=== PATIENT | female | born 1960 | race Caucasian/White ===

== ENCOUNTER → 2018-01-25 | Outpatient (CLI) | payer MEDICARE, BC, OTHER ==
[~2018-01-25] MED LIST: AMIT25; AMIT50 PO; ASPI81EC PO; AZIT250 PO; BACTRIM; CARI350 PO; CODGUAEL PO; ESOM20; FURO20 PO; HYDACE5 PO; IBUP600 PO; Imitrex100 MG PO; LISHYD2025 PO; LISI20 PO; LISI5 PO; METO25ER; METO50ER PO; Mobic15 MG PO; NAPR500 PO; ONDA4 PO; OXYACE5T PO; PEPTO BISMOL; POTCHL20ER PO; PRED20 PO; RXCODGUASY PO; SULTRIDS PO; SUMA25; Sudogest60 MG PO; TOPI50 PO; TRAM50 PO; TUMS; [UNRECOGNIZED DRUG - CODE]
[2018-01-25 13:10] LABS: BASOPHILS ABSOLUTE AUTO 0.02 K/mm3 (0.00-0.23); BASOPHILS PERCENT AUTO 0 % (0-2); EOSINOPHILS ABSOLUTE AUTO 0.05 K/mm3 (0.00-0.68); EOSINOPHILS PERCENT AUTO 1 % (0-6); Hematocrit 39.5 % (33.0-51.0); Hemoglobin 13.2 g/dL (11.5-16.0); IMMATURE GRAN ABSOLUTE AUTO 0.02 K/mm3 (0.00-0.10); IMMATURE GRAN PERCENT AUTO 0 % (0-1); LYMPHOCYTES PERCENT AUTO 36 % (21-46); MONOCYTES ABSOLUTE AUTO 0.26 K/mm3 (0.16-1.47); MONOCYTES PERCENT AUTO 5 % (4-13); Mean Corpuscular HGB 30.6 pg (26.0-34.0); Mean Corpuscular HGB Conc 33.4 g/dL (31.5-36.5); Mean Corpuscular Volume 92 fL (80-100); NEUTROPHILS PERCENT AUTO 58 % (41-73); Platelet Count 277 K/mm3 (150-400); RDW Coefficient Variation 12.9 % (11.7-14.2); RDW Standard Deviation 43.9 fL (35.1-46.3); Red Blood Cell Count 4.31 M/mm3 (3.80-5.20); White Blood Cell Count 5.35 K/mm3 (4.00-11.30)
[2018-01-25 13:23] LABS: Albumin, Blood 3.6 g/dL (3.4-5.0); Albumin/Globulin Ratio 0.9 (0.8-1.8); Bilirubin, Total 0.3 mg/dL (0.1-1.0); Bun/Creatinine Ratio 15.3 (12.0-20.0); Calcium, Blood 8.7 mg/dL (8.5-10.1); Creatinine, Blood 1.11 mg/dL (0.40-1.00); Globulin, Blood 3.8 g/dL (2.2-4.0); Total Protein, Blood 7.4 g/dL (6.4-8.2)
== END | disposition home or self-care (01) ==
LOC: LAB 12:58 → LAB SHORT 12:58
PROVIDERS: Physician Assistant
DX: N39.0 Urinary tract infection, site not specified (principal); R10.9 Unspecified abdominal pain
CPT/HCPCS: 80053; 85025; 87086

== ENCOUNTER → 2018-01-30 | Outpatient (CLI) | payer MEDICARE, BC, OTHER | END | disposition home or self-care (01) | LOC: LAB SHORT 15:14 → LAB 15:14 | DX: R19.7 Diarrhea, unspecified (principal) | CPT/HCPCS: 87086 ==

== ENCOUNTER → 2018-09-26 | Outpatient (CLI) | payer MEDICARE, BC, OTHER ==
[~2018-09-26] MED LIST changes: +Pepcid20 MG PO
== END | disposition home or self-care (01) ==
LOC: LAB 16:47 → LAB SHORT 16:47
DX: R30.0 Dysuria (principal)
CPT/HCPCS: 87077; 87086; 87186

== ENCOUNTER 2018-10-01 01:39 | Emergency (ER) | payer MEDICARE, BC, OTHER ==
[~2018-10-01] VITALS: Ht 170.2 cm; Wt 90.7 kg
[~2018-10-01 01:39] MED LIST changes: -Pepcid20 MG PO
[2018-10-01 02:15] LABS: BASOPHILS ABSOLUTE AUTO 0.03 K/mm3 (0.00-0.23); BASOPHILS PERCENT AUTO 0 % (0-2); EOSINOPHILS ABSOLUTE AUTO 0.05 K/mm3 (0.00-0.68); EOSINOPHILS PERCENT AUTO 1 % (0-6); Hemoglobin 13.4 g/dL (11.5-16.0); IMMATURE GRAN ABSOLUTE AUTO 0.04 K/mm3 (0.00-0.10); IMMATURE GRAN PERCENT AUTO 0 % (0-1); LYMPHOCYTES ABSOLUTE AUTO 2.68 K/mm3 (0.84-5.20); LYMPHOCYTES PERCENT AUTO 28 % (21-46); MONOCYTES ABSOLUTE AUTO 0.38 K/mm3 (0.16-1.47); MONOCYTES PERCENT AUTO 4 % (4-13); Mean Corpuscular HGB 30.8 pg (26.0-34.0); Mean Corpuscular HGB Conc 33.5 g/dL (31.5-36.5); Mean Corpuscular Volume 92 fL (80-100); NEUTROPHILS ABSOLUTE AUTO 6.31 K/mm3 (1.96-9.15); NEUTROPHILS PERCENT AUTO 67 % (41-73); Platelet Count 201 K/mm3 (150-400); RDW Coefficient Variation 12.7 % (11.7-14.2); RDW Standard Deviation 42.3 fL (35.1-46.3); Red Blood Cell Count 4.35 M/mm3 (3.80-5.20); White Blood Cell Count 9.49 K/mm3 (4.00-11.30)
[2018-10-01 02:31] LABS: Alanine Aminotransfer (ALT/SGP 50 U/L (12-78); Albumin, Blood 3.5 g/dL (3.4-5.0); Albumin/Globulin Ratio 0.9 (0.8-1.8); Alk Phos 77 U/L (50-136); Anion Gap 9 mmol/L (6-16); Aspartate Aminotrans (AST/SGOT 72 U/L (12-37); Bilirubin, Total 0.6 mg/dL (0.1-1.0); Blood Urea Nitrogen 23 mg/dL (8-24); Bun/Creatinine Ratio 23.1 (12.0-20.0); CO2, Blood 25 mmol/L (21-32); Chloride, Blood 107 mmol/L (98-108); Globulin, Blood 3.7 g/dL (2.2-4.0); Glomerular Filtration Rate >60 (60-); Glucose, Blood 117 mg/dL (70-99); Potassium, Blood 3.8 mmol/L (3.5-5.5); Sodium, Blood 141 mmol/L (136-145); Total Protein, Blood 7.2 g/dL (6.4-8.2)
[2018-10-01] MEDS ORDERED: Pepcid20 MG PO (03:43)
== END 2018-10-01 04:00 | disposition home or self-care (01) ==
LOC: ER 01:39
PROVIDERS: Emergency Medicine
DX: K21.9 Gastro-esophageal reflux disease without esophagitis (principal); I10 Essential (primary) hypertension; Z88.0 Allergy status to penicillin; Z88.1 Allergy status to other antibiotic agents; Z79.899 Other long term (current) drug therapy
CPT/HCPCS: 80053; 83690; 85025; 93005; 93010; 96361; 96374; 96375; 99284-25; J2550; J7030

== ENCOUNTER → 2018-10-27 | Outpatient (CLI) | payer MEDICARE, BC, OTHER ==
[~2018-10-27] MED LIST changes: +Pepcid20 MG PO
== END | disposition home or self-care (01) ==
LOC: LAB 14:15 → LAB SHORT 14:15
DX: L08.9 Local infection of the skin and subcutaneous tissue, unspecified (principal)
CPT/HCPCS: 87070; 87205

== ENCOUNTER → 2019-02-05 | Outpatient (CLI) | payer MEDICARE, BC, OTHER | END | disposition home or self-care (01) | LOC: LAB SHORT 12:00 → LAB 12:00 | DX: R04.0 Epistaxis (principal) | CPT/HCPCS: 87070; 87205 ==

== ENCOUNTER → 2019-07-11 | Outpatient (CLI) | payer MEDICARE, BC, OTHER | END | disposition home or self-care (01) | LOC: LAB 12:23 → LAB SHORT 12:23 | DX: R19.09 Other intra-abdominal and pelvic swelling, mass and lump (principal) | CPT/HCPCS: 86304 ==

== ENCOUNTER → 2020-06-04 | Outpatient (CLI) | payer MEDICARE, BC, OTHER ==
[2020-06-04 15:39] LABS: BASOPHILS ABSOLUTE AUTO 0.03 K/mm3 (0.00-0.23); BASOPHILS PERCENT AUTO 1 % (0-2); EOSINOPHILS ABSOLUTE AUTO 0.05 K/mm3 (0.00-0.68); EOSINOPHILS PERCENT AUTO 1 % (0-6); Hematocrit 41.9 % (33.0-51.0); Hemoglobin 13.6 g/dL (11.5-16.0); IMMATURE GRAN ABSOLUTE AUTO 0.01 K/mm3 (0.00-0.10); IMMATURE GRAN PERCENT AUTO 0 % (0-1); LYMPHOCYTES ABSOLUTE AUTO 2.13 K/mm3 (0.84-5.20); LYMPHOCYTES PERCENT AUTO 39 % (21-46); MONOCYTES PERCENT AUTO 6 % (4-13); Mean Corpuscular HGB 30.4 pg (26.0-34.0); Mean Corpuscular HGB Conc 32.5 g/dL (31.5-36.5); Mean Corpuscular Volume 94 fL (80-100); Mean Platelet Volume 9.6 fL (9.1-12.4); NEUTROPHILS ABSOLUTE AUTO 2.94 K/mm3 (1.96-9.15); NEUTROPHILS PERCENT AUTO 54 % (41-73); Platelet Count 238 K/mm3 (150-400); RDW Coefficient Variation 12.4 % (11.7-14.2); RDW Standard Deviation 42.7 fL (35.1-46.3); Red Blood Cell Count 4.47 M/mm3 (3.80-5.20); White Blood Cell Count 5.46 K/mm3 (4.00-11.30)
[2020-06-04 16:08] LABS: Alanine Aminotransfer (ALT/SGP 26 U/L (12-78); Albumin, Blood 3.6 g/dL (3.4-5.0); Alk Phos 90 U/L (50-136); Anion Gap 5 mmol/L (6-16); Aspartate Aminotrans (AST/SGOT 12 U/L (12-37); Bilirubin, Total 0.5 mg/dL (0.1-1.0); Blood Urea Nitrogen 22 mg/dL (8-24); Bun/Creatinine Ratio 27.7 (12.0-20.0); CO2, Blood 28 mmol/L (21-32); Calcium, Blood 9.1 mg/dL (8.5-10.1); Chloride, Blood 112 mmol/L (98-108); Creatinine, Blood 0.79 mg/dL (0.40-1.00); Globulin, Blood 3.7 g/dL (2.2-4.0); Glomerular Filtration Rate >60 (60-); Glucose, Blood 98 mg/dL (70-99); Potassium, Blood 3.9 mmol/L (3.5-5.5); Sodium, Blood 145 mmol/L (136-145); Total Protein, Blood 7.3 g/dL (6.4-8.2)
== END | disposition home or self-care (01) ==
LOC: LAB 15:18 → LAB SHORT 15:18
PROVIDERS: Nurse Practitioner Family
DX: N23 Unspecified renal colic (principal); R30.0 Dysuria
CPT/HCPCS: 80053; 85025

== ENCOUNTER → 2021-06-18 | Outpatient (CLI) | payer MEDICARE, OTHER | END | disposition home or self-care (01) | LOC: LAB 16:41 → LAB SHORT 16:41 | DX: R30.9 Painful micturition, unspecified (principal) | CPT/HCPCS: 87077; 87086; 87186 ==

== ENCOUNTER → 2021-08-01 | Outpatient (CLI) | payer MEDICARE, OTHER ==
[2021-08-01 18:30] LABS: Alanine Aminotransfer (ALT/SGP 51 U/L (12-78); Albumin, Blood 3.5 g/dL (3.4-5.0); Albumin/Globulin Ratio 0.9 (0.8-1.8); Alk Phos 84 U/L (50-136); Anion Gap 2 mmol/L (6-16); Aspartate Aminotrans (AST/SGOT 18 U/L (12-37); Bilirubin, Total 0.5 mg/dL (0.1-1.0); Blood Urea Nitrogen 29 mg/dL (8-24); CHOL/HDL RATIO 2.6; CO2, Blood 29 mmol/L (21-32); Chloride, Blood 108 mmol/L (98-108); Cholesterol 202 mg/dL (50-200); Globulin, Blood 4.1 g/dL (2.2-4.0); Glucose, Blood 94 mg/dL (70-99); HDL Cholesterol 77 mg/dL (>39); LDL/HDL RATIO 1.5; Low Density Lipoprotein Chol 115 mg/dL (0-110); Potassium, Blood 4.4 mmol/L (3.5-5.5); Sodium, Blood 139 mmol/L (136-145); Total Protein, Blood 7.6 g/dL (6.4-8.2); Triglycerides 48 mg/dL (30-160); Very Low Density Lipoprot Chol 9 mg/dL (6-32)
[2021-08-01 18:34] LABS: Bun/Creatinine Ratio 34.2 (12.0-20.0); Creatinine, Blood 0.85 mg/dL (0.40-1.00); Glomerular Filtration Rate >60 (60-)
== END | disposition home or self-care (01) ==
LOC: LAB SHORT 16:09
PROVIDERS: Nurse Practitioner Family
DX: I10 Essential (primary) hypertension (principal); E66.9 Obesity, unspecified
CPT/HCPCS: 80053; 80061; 84443

== ENCOUNTER → 2022-07-21 | Outpatient (CLI) | payer MEDICARE, BC, OTHER ==
[2022-07-21 18:27] LABS: Albumin, Blood 3.6 g/dL (3.4-5.0); Albumin/Globulin Ratio 0.9 (0.8-1.8); Alk Phos 84 U/L (50-136); Anion Gap 3 mmol/L (6-16); Aspartate Aminotrans (AST/SGOT 29 U/L (12-37); Bilirubin, Total 0.6 mg/dL (0.1-1.0); Blood Urea Nitrogen 22 mg/dL (8-24); CHOL/HDL RATIO 3.2; CO2, Blood 30 mmol/L (21-32); Chloride, Blood 104 mmol/L (98-108); Cholesterol 225 mg/dL (50-200); Globulin, Blood 3.9 g/dL (2.2-4.0); Glucose, Blood 105 mg/dL (70-99); HDL Cholesterol 71 mg/dL (>39); LDL/HDL RATIO 1.8; Low Density Lipoprotein Chol 131 mg/dL (0-110); Potassium, Blood 3.8 mmol/L (3.5-5.5); Sodium, Blood 137 mmol/L (136-145); Total Protein, Blood 7.5 g/dL (6.4-8.2); Triglycerides 114 mg/dL (30-160); Very Low Density Lipoprot Chol 22 mg/dL (6-32)
[2022-07-21 18:47] LABS: Alanine Aminotransfer (ALT/SGP 62 U/L (12-78); Bun/Creatinine Ratio 30.3 (12.0-20.0); Creatinine, Blood 0.73 mg/dL (0.40-1.00); Glomerular Filtration Rate 93 (60-); Thyroid Stimulating Hormone 0.475 uIU/mL (0.360-4.800)
== END | disposition home or self-care (01) ==
LOC: LAB SHORT 16:44 → LAB 16:44
PROVIDERS: Nurse Practitioner Family
DX: G47.00 Insomnia, unspecified (principal); I10 Essential (primary) hypertension; N30.01 Acute cystitis with hematuria; N32.81 Overactive bladder
CPT/HCPCS: 80053; 80061; 84443; 87077; 87086; 87186

== ENCOUNTER → 2022-11-06 | Outpatient (CLI) | payer MEDICARE, BC, OTHER | LOC: LAB 11:25 → LAB SHORT 11:25 | DX: R11.0 Nausea (principal) | CPT/HCPCS: 87086 ==

== ENCOUNTER → 2022-12-10 | Outpatient (CLI) | payer MEDICARE, BC, OTHER ==
[~2022-12-10] MED LIST changes: +CYCL10 PO; +PROM25 PO; +ZEBUTAL 50-3251 EAC1 PO; +ZOLP5 PO
== END | disposition home or self-care (01) ==
LOC: PLD 07:46 → LAB SHORT 07:46
DX: B35.1 Tinea unguium (principal); L60.2 Onychogryphosis
CPT/HCPCS: 88304; 88312

== ENCOUNTER 2023-03-22 11:01 | Emergency (ER) | payer MEDICARE, BC, OTHER ==
[~2023-03-22] VITALS: Ht 154.9 cm; Wt 95.2 kg
[2023-03-22 11:43] LABS: Source, Urine Clean Catch
[2023-03-22 11:47] LABS: Bilirubin, Urine Neg (Neg); Blood, Urine 2+ (Neg); Glucose Qualitative, Urine Neg (Neg); Ketones, Urine Neg (Neg); Leukocyte Esterase, Urine Neg (Neg); Nitrite, Urine Neg (Neg); Protein, Urine Neg (Neg); Specific Gravity, Urine 1.015 (1.003-1.022); Urobilinogen, Urine NORM (Normal)
[2023-03-22 11:52] LABS: Appearance, Urine Clear (Clear); Color, Urine Yellow (P-Yellow)
[2023-03-22 11:54] LABS: Bacteria Rare /hpf; Squamous Epithelial Cells Rare /hpf (Few); White Blood Cells, Urine 0-2 /hpf (0-5)
[2023-03-22 13:01] LABS: BASOPHILS ABSOLUTE AUTO 0.03 K/mm3 (0.00-0.23); BASOPHILS PERCENT AUTO 1 % (0-2); EOSINOPHILS ABSOLUTE AUTO 0.03 K/mm3 (0.00-0.68); EOSINOPHILS PERCENT AUTO 1 % (0-6); Hematocrit 40.1 % (33.0-51.0); Hemoglobin 13.7 g/dL (11.5-16.0); IMMATURE GRAN ABSOLUTE AUTO 0.02 K/mm3 (0.00-0.10); IMMATURE GRAN PERCENT AUTO 0 % (0-1); LYMPHOCYTES ABSOLUTE AUTO 1.28 K/mm3 (0.84-5.20); LYMPHOCYTES PERCENT AUTO 22 % (21-46); MONOCYTES ABSOLUTE AUTO 0.17 K/mm3 (0.16-1.47); MONOCYTES PERCENT AUTO 3 % (4-13); Mean Corpuscular HGB 30.4 pg (26.0-34.0); Mean Corpuscular HGB Conc 34.2 g/dL (31.5-36.5); Mean Corpuscular Volume 89 fL (80-100); Mean Platelet Volume 9.6 fL (9.1-12.4); NEUTROPHILS ABSOLUTE AUTO 4.35 K/mm3 (1.96-9.15); NEUTROPHILS PERCENT AUTO 74 % (41-73); Platelet Count 252 K/mm3 (150-400); RDW Coefficient Variation 12.7 % (11.7-14.2); RDW Standard Deviation 41.7 fL (35.1-46.3); White Blood Cell Count 5.88 K/mm3 (4.00-11.30)
[2023-03-22 13:26] LABS: Albumin, Blood 3.4 g/dL (3.4-5.0); Bilirubin, Total 0.6 mg/dL (0.1-1.0); Bun/Creatinine Ratio 24.7 (12.0-20.0); Calcium, Blood 8.6 mg/dL (8.5-10.1); Creatinine, Blood 0.81 mg/dL (0.40-1.00); Globulin, Blood 3.5 g/dL (2.2-4.0); Potassium, Blood 3.8 mmol/L (3.5-5.5); Total Protein, Blood 6.9 g/dL (6.4-8.2)
[2023-03-22 14:29] VITALS: BP 140/81
== END 2023-03-22 15:45 | disposition home or self-care (01) ==
LOC: ER 11:01
PROVIDERS: Physician Assistant; Student in an Organized Health Care Education/Training Program
DX: G43.909 Migraine, unspecified, not intractable, without status migrainosus (principal); R30.0 Dysuria; Z88.0 Allergy status to penicillin; Z88.1 Allergy status to other antibiotic agents; Z79.1 Long term (current) use of non-steroidal anti-inflammatories (NSAID); Z79.899 Other long term (current) drug therapy; I10 Essential (primary) hypertension
CPT/HCPCS: 80053; 81001; 85025; 96361; 96365; 96375; 99283-25; J0780; J1100; J1200; J1885; J3475; J7030

== ENCOUNTER → 2023-04-22 | Outpatient (CLI) | payer MEDICARE, BC, OTHER ==
[2023-04-22 17:55] LABS: BASOPHILS ABSOLUTE AUTO 0.03 K/mm3 (0.00-0.23); BASOPHILS PERCENT AUTO 1 % (0-2); EOSINOPHILS ABSOLUTE AUTO 0.08 K/mm3 (0.00-0.68); EOSINOPHILS PERCENT AUTO 1 % (0-6); Hematocrit 43.5 % (33.0-51.0); Hemoglobin 14.3 g/dL (11.5-16.0); IMMATURE GRAN ABSOLUTE AUTO 0.01 K/mm3 (0.00-0.10); IMMATURE GRAN PERCENT AUTO 0 % (0-1); LYMPHOCYTES ABSOLUTE AUTO 1.76 K/mm3 (0.84-5.20); LYMPHOCYTES PERCENT AUTO 30 % (21-46); MONOCYTES PERCENT AUTO 5 % (4-13); Mean Corpuscular HGB 30.1 pg (26.0-34.0); Mean Corpuscular HGB Conc 32.9 g/dL (31.5-36.5); Mean Corpuscular Volume 92 fL (80-100); Mean Platelet Volume 10.1 fL (9.1-12.4); NEUTROPHILS ABSOLUTE AUTO 3.69 K/mm3 (1.96-9.15); NEUTROPHILS PERCENT AUTO 63 % (41-73); Platelet Count 278 K/mm3 (150-400); RDW Coefficient Variation 13.5 % (11.7-14.2); RDW Standard Deviation 45.5 fL (35.1-46.3); Red Blood Cell Count 4.75 M/mm3 (3.80-5.20); White Blood Cell Count 5.87 K/mm3 (4.00-11.30)
[2023-04-22 18:20] LABS: Alanine Aminotransfer (ALT/SGP 48 U/L (12-78); Albumin, Blood 3.8 g/dL (3.4-5.0); Alk Phos 102 U/L (50-136); Anion Gap 2 mmol/L (6-16); Aspartate Aminotrans (AST/SGOT 19 U/L (12-37); Bilirubin, Total 0.6 mg/dL (0.1-1.0); Blood Urea Nitrogen 20 mg/dL (8-24); CO2, Blood 30 mmol/L (21-32); Calcium, Blood 9.3 mg/dL (8.5-10.1); Chloride, Blood 106 mmol/L (98-108); Cholesterol 223 mg/dL (50-200); Globulin, Blood 3.8 g/dL (2.2-4.0); HDL Cholesterol 75 mg/dL (>39); LDL/HDL RATIO 1.5; Low Density Lipoprotein Chol 116 mg/dL (0-110); Potassium, Blood 4.1 mmol/L (3.5-5.5); Sodium, Blood 138 mmol/L (136-145); Total Protein, Blood 7.6 g/dL (6.4-8.2); Triglycerides 161 mg/dL (30-160); Very Low Density Lipoprot Chol 32 mg/dL (6-32)
[2023-04-22 18:29] LABS: Bun/Creatinine Ratio 23.1 (12.0-20.0); Creatinine, Blood 0.87 mg/dL (0.40-1.00); Glomerular Filtration Rate 75 (60-); Glucose, Blood 109 mg/dL (70-99)
== END | disposition home or self-care (01) ==
LOC: LAB 16:22 → LAB SHORT 16:22
PROVIDERS: Nurse Practitioner Family
DX: E55.9 Vitamin D deficiency, unspecified (principal); I10 Essential (primary) hypertension; N39.0 Urinary tract infection, site not specified; Z79.899 Other long term (current) drug therapy
CPT/HCPCS: 80053; 80061; 82306; 84443; 85025; 87086

== ENCOUNTER → 2023-05-04 | Outpatient (CLI) | payer MEDICARE, BC, OTHER | LOC: LAB 14:00 → LAB SHORT 14:00 | DX: R30.0 Dysuria (principal) | CPT/HCPCS: 87077; 87086; 87186 ==

== ENCOUNTER 2023-06-15 10:06 | Emergency (ER) | payer MEDICARE, BC, OTHER ==
[~2023-06-15] VITALS: Ht 154.9 cm; Wt 95.2 kg
[2023-06-15 11:06] LABS: BASOPHILS ABSOLUTE AUTO 0.03 K/mm3 (0.00-0.23); BASOPHILS PERCENT AUTO 0 % (0-2); EOSINOPHILS ABSOLUTE AUTO 0.02 K/mm3 (0.00-0.68); EOSINOPHILS PERCENT AUTO 0 % (0-6); Hematocrit 42.6 % (33.0-51.0); Hemoglobin 14.6 g/dL (11.5-16.0); IMMATURE GRAN ABSOLUTE AUTO 0.03 K/mm3 (0.00-0.10); IMMATURE GRAN PERCENT AUTO 0 % (0-1); LYMPHOCYTES ABSOLUTE AUTO 1.71 K/mm3 (0.84-5.20); LYMPHOCYTES PERCENT AUTO 24 % (21-46); MONOCYTES ABSOLUTE AUTO 0.11 K/mm3 (0.16-1.47); MONOCYTES PERCENT AUTO 2 % (4-13); Mean Corpuscular HGB 30.5 pg (26.0-34.0); Mean Corpuscular HGB Conc 34.3 g/dL (31.5-36.5); Mean Corpuscular Volume 89 fL (80-100); Mean Platelet Volume 9.4 fL (9.1-12.4); NEUTROPHILS ABSOLUTE AUTO 5.26 K/mm3 (1.96-9.15); NEUTROPHILS PERCENT AUTO 74 % (41-73); Platelet Count 273 K/mm3 (150-400); RDW Coefficient Variation 12.8 % (11.7-14.2); RDW Standard Deviation 42.1 fL (35.1-46.3); Red Blood Cell Count 4.78 M/mm3 (3.80-5.20); White Blood Cell Count 7.16 K/mm3 (4.00-11.30)
[2023-06-15 11:36] LABS: Albumin, Blood 3.5 g/dL (3.4-5.0); Albumin/Globulin Ratio 0.9 (0.8-1.8); Bilirubin, Total 0.5 mg/dL (0.1-1.0); Bun/Creatinine Ratio 23.5 (12.0-20.0); Calcium, Blood 9.6 mg/dL (8.5-10.1); Creatinine, Blood 0.72 mg/dL (0.40-1.00); Globulin, Blood 4.1 g/dL (2.2-4.0); Total Protein, Blood 7.6 g/dL (6.4-8.2)
[2023-06-15 13:34] VITALS: BP 144/84
[2023-06-15 14:59] LABS: Source, Urine Voided
[2023-06-15 15:22] LABS: Appearance, Urine Clear (Clear); Bilirubin, Urine Neg (Neg); Blood, Urine 1+ (Neg); Color, Urine Yellow (P-Yellow); Glucose Qualitative, Urine Neg (Neg); Ketones, Urine Neg (Neg); Leukocyte Esterase, Urine Neg (Neg); Nitrite, Urine Neg (Neg); Protein, Urine Neg (Neg); Urobilinogen, Urine NORM (Normal)
[2023-06-15 16:37] LABS: Bacteria Few /hpf; Squamous Epithelial Cells Few /hpf (Few); White Blood Cells, Urine 0-2 /hpf (0-5)
[2023-06-15] MEDS ORDERED: IBUP600 PO (16:47)
[2023-06-15] MEDS ORDERED: ONDA4ODT MM (16:47)
== END 2023-06-15 17:06 | disposition home or self-care (01) ==
LOC: ER 10:06
PROVIDERS: Emergency Medicine; Physician Assistant
DX: R10.9 Unspecified abdominal pain (principal); R51.9 Headache, unspecified; R11.2 Nausea with vomiting, unspecified; Z88.0 Allergy status to penicillin; Z88.1 Allergy status to other antibiotic agents; Z79.899 Other long term (current) drug therapy; I10 Essential (primary) hypertension
CPT/HCPCS: 74177; 80053; 81001; 83690; 85025; 93005; 93010; 96374-59; 96375; 99284-25; J1790; J2270; J2405; Q9967

== ENCOUNTER → 2023-08-06 | Outpatient (CLI) | payer MEDICARE, BC, OTHER ==
[~2023-08-06] MED LIST changes: +ONDA4ODT MM
[2023-08-06 18:16] LABS: BASOPHILS ABSOLUTE AUTO 0.02 K/mm3 (0.00-0.23); BASOPHILS PERCENT AUTO 0 % (0-2); EOSINOPHILS ABSOLUTE AUTO 0.05 K/mm3 (0.00-0.68); EOSINOPHILS PERCENT AUTO 1 % (0-6); Hemoglobin 14.5 g/dL (11.5-16.0); IMMATURE GRAN PERCENT AUTO 0 % (0-1); LYMPHOCYTES ABSOLUTE AUTO 1.17 K/mm3 (0.84-5.20); LYMPHOCYTES PERCENT AUTO 23 % (21-46); MONOCYTES ABSOLUTE AUTO 0.24 K/mm3 (0.16-1.47); MONOCYTES PERCENT AUTO 5 % (4-13); Mean Corpuscular HGB 29.8 pg (26.0-34.0); Mean Corpuscular Volume 90 fL (80-100); Mean Platelet Volume 10.4 fL (9.1-12.4); NEUTROPHILS ABSOLUTE AUTO 3.65 K/mm3 (1.96-9.15); NEUTROPHILS PERCENT AUTO 71 % (41-73); Platelet Count 281 K/mm3 (150-400); RDW Coefficient Variation 12.7 % (11.7-14.2); RDW Standard Deviation 41.9 fL (35.1-46.3); Red Blood Cell Count 4.87 M/mm3 (3.80-5.20); White Blood Cell Count 5.13 K/mm3 (4.00-11.30)
[2023-08-06 19:54] LABS: Albumin, Blood 3.9 g/dL (3.4-5.0); Albumin/Globulin Ratio 0.9 (0.8-1.8); Bilirubin, Total 0.8 mg/dL (0.1-1.0); Bun/Creatinine Ratio 20.9 (12.0-20.0); Calcium, Blood 9.2 mg/dL (8.5-10.1); Creatinine, Blood 0.81 mg/dL (0.40-1.00); Globulin, Blood 4.2 g/dL (2.2-4.0); Magnesium, Blood 2.3 mg/dL (1.6-2.4); Potassium, Blood 4.1 mmol/L (3.5-5.5); Thyroid Stimulating Hormone 0.127 uIU/mL (0.360-4.800); Total Protein, Blood 8.1 g/dL (6.4-8.2)
== END | disposition home or self-care (01) ==
LOC: LAB 16:33 → LAB SHORT 16:33
PROVIDERS: Nurse Practitioner Family
DX: M17.9 Osteoarthritis of knee, unspecified (principal); R30.0 Dysuria; I10 Essential (primary) hypertension
CPT/HCPCS: 80053; 83735; 84443; 85025; 87086

== ENCOUNTER 2023-08-20 06:01 | Emergency (ER) | payer MEDICARE, BC, OTHER ==
[~2023-08-20] VITALS: Ht 157.5 cm; Wt 93.4 kg
[2023-08-20 06:36] LABS: BASOPHILS ABSOLUTE AUTO 0.02 K/mm3 (0.00-0.23); BASOPHILS PERCENT AUTO 0 % (0-2); EOSINOPHILS ABSOLUTE AUTO 0.02 K/mm3 (0.00-0.68); EOSINOPHILS PERCENT AUTO 0 % (0-6); Hematocrit 39.8 % (33.0-51.0); Hemoglobin 13.7 g/dL (11.5-16.0); IMMATURE GRAN ABSOLUTE AUTO 0.02 K/mm3 (0.00-0.10); IMMATURE GRAN PERCENT AUTO 0 % (0-1); LYMPHOCYTES ABSOLUTE AUTO 1.36 K/mm3 (0.84-5.20); LYMPHOCYTES PERCENT AUTO 17 % (21-46); MONOCYTES ABSOLUTE AUTO 0.27 K/mm3 (0.16-1.47); MONOCYTES PERCENT AUTO 3 % (4-13); Mean Corpuscular HGB Conc 34.4 g/dL (31.5-36.5); Mean Corpuscular Volume 87 fL (80-100); Mean Platelet Volume 10.3 fL (9.1-12.4); NEUTROPHILS ABSOLUTE AUTO 6.35 K/mm3 (1.96-9.15); NEUTROPHILS PERCENT AUTO 79 % (41-73); Platelet Count 238 K/mm3 (150-400); RDW Standard Deviation 41.1 fL (35.1-46.3); Red Blood Cell Count 4.57 M/mm3 (3.80-5.20); White Blood Cell Count 8.04 K/mm3 (4.00-11.30)
[2023-08-20 06:45] LABS: Albumin, Blood 3.5 g/dL (3.4-5.0); Albumin/Globulin Ratio 0.9 (0.8-1.8); Bilirubin, Total 0.9 mg/dL (0.1-1.0); Bun/Creatinine Ratio 19.4 (12.0-20.0); Calcium, Blood 9.8 mg/dL (8.5-10.1); Creatinine, Blood 0.77 mg/dL (0.40-1.00); Globulin, Blood 3.9 g/dL (2.2-4.0); Total Protein, Blood 7.4 g/dL (6.4-8.2)
[2023-08-20 07:38] LABS: Source, Urine Clean Catch
[2023-08-20 07:40] LABS: Appearance, Urine Clear (Clear); Bilirubin, Urine Neg (Neg); Blood, Urine 4+ (Neg); Color, Urine Yellow (P-Yellow); Glucose Qualitative, Urine Neg (Neg); Ketones, Urine Neg (Neg); Leukocyte Esterase, Urine Neg (Neg); Nitrite, Urine Neg (Neg); Protein, Urine Neg (Neg); Urobilinogen, Urine NORM (Normal)
[2023-08-20 07:55] LABS: Bacteria Few /hpf; Squamous Epithelial Cells Rare /hpf (Few); White Blood Cells, Urine 0-2 /hpf (0-5)
[2023-08-20] MEDS ORDERED: Roxicodone5 MG PO (08:45)
[2023-08-20] MEDS ORDERED: ONDA4ODT MM (08:45)
[2023-08-20] MEDS ORDERED: Flomax0.4 MG PO (08:45)
[2023-08-20 09:00] VITALS: BP 121/75
== END 2023-08-20 09:41 | disposition home or self-care (01) ==
LOC: ER 06:01
PROVIDERS: Emergency Medicine
DX: N13.2 Hydronephrosis with renal and ureteral calculous obstruction (principal); Q63.1 Lobulated, fused and horseshoe kidney; I10 Essential (primary) hypertension; Z87.440 Personal history of urinary (tract) infections; Z79.899 Other long term (current) drug therapy; Z88.0 Allergy status to penicillin; Z88.1 Allergy status to other antibiotic agents
CPT/HCPCS: 74177; 80053; 81001; 83690; 85025; 87086; 96374-59; 96375; 99285-25; J2270; J2405; Q9967

== ENCOUNTER → 2023-09-08 | Outpatient (CLI) | payer MEDICARE, BC, OTHER ==
[~2023-09-08] MED LIST changes: +Flomax0.4 MG PO; +Roxicodone5 MG PO
[2023-09-08 18:42] LABS: CHOL/HDL RATIO 2.7; Cholesterol 194 mg/dL (50-200); HDL Cholesterol 72 mg/dL (>39); LDL/HDL RATIO 1.4; Low Density Lipoprotein Chol 103 mg/dL (0-110); Triglycerides 93 mg/dL (30-160); Very Low Density Lipoprot Chol 18 mg/dL (6-32)
[2023-09-14 08:09] LABS: ETHYL GLUCURONIDE, URN, QUANT <100 ng/mL; ETHYL SULFATE, URN, QUANT <100 ng/mL
== END | disposition home or self-care (01) ==
LOC: LAB 16:19 → LAB SHORT 16:19
PROVIDERS: Family Medicine
DX: E78.5 Hyperlipidemia, unspecified (principal); R89.9 Unspecified abnormal finding in specimens from other organs, systems and tissues; Z79.891 Long term (current) use of opiate analgesic
CPT/HCPCS: 80061; 84443; G0480

== ENCOUNTER 2023-12-12 18:12 | Emergency (ER) | payer MEDICARE, BC, OTHER ==
[~2023-12-12] VITALS: Ht 157.5 cm; Wt 95.2 kg
[2023-12-12] MEDS ORDERED: SUMAtriptan Succinate 6 MG/0.5 ML Vial SC ONE (19:25)
[2023-12-12 20:05] VITALS: BP 152/76
[2023-12-12] MEDS ORDERED: SUMA25 PO (20:13)
== END 2023-12-12 20:10 | disposition home or self-care (01) ==
LOC: ER 18:12
DX: G43.909 Migraine, unspecified, not intractable, without status migrainosus (principal); Z88.0 Allergy status to penicillin; Z88.1 Allergy status to other antibiotic agents; Z79.899 Other long term (current) drug therapy; I10 Essential (primary) hypertension
CPT/HCPCS: 96372; 99284-25; J3030

== ENCOUNTER → 2024-03-29 | Outpatient (CLI) | payer MEDICARE, BC, OTHER ==
[~2024-03-29] MED LIST changes: +SUMA25 PO
[2024-03-29 17:25] LABS: Source, Urine Voided
[2024-03-29 19:05] LABS: Bacteria Few /hpf; Red Blood Cells, Urine 0-2 /hpf (0-2); Squamous Epithelial Cells Few /hpf (Few)
== END ==
LOC: LAB SHORT 17:22 → LAB 17:22
PROVIDERS: Family Medicine
DX: R30.0 Dysuria (principal)
CPT/HCPCS: 81015; 87086

== ENCOUNTER 2024-08-22 10:04 | Day surgery (SDC) | payer MEDICARE, BC ==
[~2024-08-22] VITALS: Ht 154.9 cm; Wt 85.1 kg
[~2024-08-22 10:04] MED LIST changes: +Lidocaine 1%-Epineph 1:100000 20 ML MDV ONE; +NS 500 ML IV ONE
[2024-08-22] MEDS ORDERED: NS 500 ML IV ONE (10:39)
[2024-08-22] MEDS ORDERED: FentaNYL Citrate 50 MCG/ML 2 ML Injection ONE (10:56)
[2024-08-22] MEDS ORDERED: Midazolam HCl 1MG / ML 2ML Vial ONE (10:56)
[2024-08-22] MEDS ORDERED: propofoL 20 ML IV ONE (10:56)
[2024-08-22] MEDS ORDERED: Ondansetron HCl 2 MG / ML 2ML Vial ONE (11:00)
[2024-08-22] MEDS ORDERED: Dexamethasone Sod Phos 10 MG/ML 1ML VIAL ONE (11:00)
[2024-08-22 11:42] VITALS: BP 114/69
== END 2024-08-22 11:49 | disposition home or self-care (01) ==
LOC: ORSCSDS 10:04
PROVIDERS: Orthopaedic Surgery
PROC: 0LB70ZZ Excision of Right Hand Tendon, Open Approach (ICD-10-PCS; principal; 2024-08-22 12:00)
PROC: 0LB50ZZ Excision of Right Lower Arm and Wrist Tendon, Open Approach (ICD-10-PCS; principal; 2024-08-22 12:00)
DX: M67.441 Ganglion, right hand (principal); R22.31 Localized swelling, mass and lump, right upper limb; I10 Essential (primary) hypertension; Z79.899 Other long term (current) drug therapy
CPT/HCPCS: 88304; J1100; J2250; J2405; J2704; J3010; J7040

== ENCOUNTER 2024-08-26 16:46 | Emergency (ER) | payer MEDICARE, BC, OTHER ==
[~2024-08-26] VITALS: Ht 154.9 cm; Wt 83.9 kg
[~2024-08-26 16:46] MED LIST changes: -Lidocaine 1%-Epineph 1:100000 20 ML MDV ONE; -NS 500 ML IV ONE
[2024-08-26] MEDS ORDERED: Morphine Sulfate 4 MG/1 ML Injection IV ONE (17:15)
[2024-08-26] MEDS ORDERED: Ondansetron HCl 2 MG / ML 2ML Vial IV ONE (17:15)
[2024-08-26] MEDS ORDERED: NS 1,000 ML IV SCH (17:15)
[2024-08-26 18:00] LABS: BASOPHILS ABSOLUTE AUTO 0.04 K/mm3 (0.00-0.23); BASOPHILS PERCENT AUTO 0 % (0-2); EOSINOPHILS ABSOLUTE AUTO 0.05 K/mm3 (0.00-0.68); EOSINOPHILS PERCENT AUTO 1 % (0-6); Hematocrit 41.2 % (33.0-51.0); Hemoglobin 13.8 g/dL (11.5-16.0); IMMATURE GRAN ABSOLUTE AUTO 0.03 K/mm3 (0.00-0.10); IMMATURE GRAN PERCENT AUTO 0 % (0-1); LYMPHOCYTES ABSOLUTE AUTO 1.53 K/mm3 (0.84-5.20); LYMPHOCYTES PERCENT AUTO 17 % (21-46); MONOCYTES ABSOLUTE AUTO 0.47 K/mm3 (0.16-1.47); MONOCYTES PERCENT AUTO 5 % (4-13); Mean Corpuscular HGB 30.7 pg (26.0-34.0); Mean Corpuscular HGB Conc 33.5 g/dL (31.5-36.5); Mean Corpuscular Volume 92 fL (80-100); Mean Platelet Volume 9.4 fL (9.1-12.4); NEUTROPHILS ABSOLUTE AUTO 6.95 K/mm3 (1.96-9.15); NEUTROPHILS PERCENT AUTO 77 % (41-73); Platelet Count 279 K/mm3 (150-400); RDW Standard Deviation 43.7 fL (35.1-46.3); Red Blood Cell Count 4.49 M/mm3 (3.80-5.20); White Blood Cell Count 9.07 K/mm3 (4.00-11.30)
[2024-08-26 18:20] LABS: Albumin, Blood 3.4 g/dL (3.4-5.0); Albumin/Globulin Ratio 0.9 (0.8-1.8); Bilirubin, Total 0.8 mg/dL (0.1-1.0); Bun/Creatinine Ratio 22.8 (12.0-20.0); Calcium, Blood 9.2 mg/dL (8.5-10.1); Creatinine, Blood 0.88 mg/dL (0.40-1.00); Globulin, Blood 3.6 g/dL (2.2-4.0); Magnesium, Blood 2.6 mg/dL (1.6-2.4); Potassium, Blood 3.7 mmol/L (3.5-5.5)
[2024-08-26 18:30] LABS: Source, Urine Clean Catch
[2024-08-26 18:35] LABS: Bilirubin, Urine Neg (Neg); Blood, Urine 2+ (Neg); Color, Urine Yellow (P-Yellow); Glucose Qualitative, Urine Neg (Neg); Ketones, Urine 1+ (Neg); Leukocyte Esterase, Urine 2+ (Neg); Nitrite, Urine Neg (Neg); Protein, Urine 1+ (Neg); Urobilinogen, Urine 1+ (Normal)
[2024-08-26 18:50] LABS: Appearance, Urine Hazy (Clear)
[2024-08-26 18:51] LABS: Bacteria Mod /hpf; Mucus Light (0-Heavy); Squamous Epithelial Cells Mod /hpf (Few)
[2024-08-26 18:52] LABS: Transitional Epithelial Cells Mod /hpf (0-Rare)
[2024-08-26] MEDS ORDERED: Nitrofurantoin/Nitrofuran Mac 100 MG Cap PO ONE (19:00)
[2024-08-26 19:30] VITALS: BP 121/78
[2024-08-26] MEDS ORDERED: ONDA4 PO (19:31)
[2024-08-26] MEDS ORDERED: ACET500 PO (19:31)
[2024-08-26] MEDS ORDERED: NITR100CA PO (19:31)
[2024-08-26] MEDS ORDERED: MIRALAX17 GM PO (19:31)
== END 2024-08-26 19:47 | disposition home or self-care (01) ==
LOC: ER 16:46
PROVIDERS: Emergency Medicine
DX: R11.2 Nausea with vomiting, unspecified (principal); R10.9 Unspecified abdominal pain; I10 Essential (primary) hypertension; Z79.899 Other long term (current) drug therapy; Z88.0 Allergy status to penicillin; Z88.1 Allergy status to other antibiotic agents
CPT/HCPCS: 74177; 80053; 81001; 83690; 83735; 85025; 93005; 93010; 96360-59; 99284-25; A9270; J7030; Q9967

== ENCOUNTER → 2024-09-26 | Outpatient (CLI) | payer MEDICARE, BC, OTHER ==
[~2024-09-26] MED LIST changes: +ACET500 PO; +MIRALAX17 GM PO; +NITR100CA PO
== END | disposition home or self-care (01) ==
LOC: LAB 09:20 → LAB SHORT 09:20
DX: N39.0 Urinary tract infection, site not specified (principal)
CPT/HCPCS: 87086

== ENCOUNTER → 2024-12-01 | Outpatient (CLI) | payer MEDICARE, BC, OTHER | LOC: LAB SHORT 16:02 → LAB 16:02 | DX: N39.0 Urinary tract infection, site not specified (principal) | CPT/HCPCS: 87086 ==

== ENCOUNTER 2025-02-11 03:19 | Emergency (ER) | payer MEDICARE, BC, OTHER ==
[~2025-02-11] VITALS: Ht 154.9 cm; Wt 88.5 kg
[2025-02-11] MEDS ORDERED: NS 1,000 ML IV SCH (03:40)
[2025-02-11] MEDS ORDERED: Prochlorperazine Edisylate 10 mg Vial IV ONE (03:40)
[2025-02-11] MEDS ORDERED: DiphenhydrAMINE HCl 50 MG/ML 1ML Vial IV ONE (03:40)
[2025-02-11 03:46] LABS: BASOPHILS ABSOLUTE AUTO 0.01 K/mm3 (0.00-0.23); BASOPHILS PERCENT AUTO 0 % (0-2); EOSINOPHILS PERCENT AUTO 0 % (0-6); IMMATURE GRAN ABSOLUTE AUTO 0.01 K/mm3 (0.00-0.10); IMMATURE GRAN PERCENT AUTO 0 % (0-1); LYMPHOCYTES ABSOLUTE AUTO 1.37 K/mm3 (0.84-5.20); LYMPHOCYTES PERCENT AUTO 20 % (21-46); MONOCYTES ABSOLUTE AUTO 0.35 K/mm3 (0.16-1.47); MONOCYTES PERCENT AUTO 5 % (4-13); Mean Corpuscular HGB 30.4 pg (26.0-34.0); Mean Corpuscular HGB Conc 34.2 g/dL (31.5-36.5); Mean Corpuscular Volume 89 fL (80-100); Mean Platelet Volume 9.3 fL (9.1-12.4); NEUTROPHILS ABSOLUTE AUTO 5.07 K/mm3 (1.96-9.15); NEUTROPHILS PERCENT AUTO 75 % (41-73); Platelet Count 256 K/mm3 (150-400); RDW Coefficient Variation 12.8 % (11.7-14.2); RDW Standard Deviation 41.9 fL (35.1-46.3); Red Blood Cell Count 4.27 M/mm3 (3.80-5.20); White Blood Cell Count 6.81 K/mm3 (4.00-11.30)
[2025-02-11 04:05] LABS: Albumin, Blood 3.5 g/dL (3.4-5.0); Bilirubin, Total 0.5 mg/dL (0.1-1.0); Bun/Creatinine Ratio 25.9 (12.0-20.0); Creatinine, Blood 0.77 mg/dL (0.40-1.00); Globulin, Blood 3.6 g/dL (2.2-4.0); Potassium, Blood 3.6 mmol/L (3.5-5.5); Total Protein, Blood 7.1 g/dL (6.4-8.2)
[2025-02-11 04:47] LABS: Source, Urine Clean Catch
[2025-02-11 04:55] LABS: Appearance, Urine Hazy (Clear); Bilirubin, Urine Neg (Neg); Blood, Urine 5+ (Neg); Color, Urine Yellow (P-Yellow); Glucose Qualitative, Urine Neg (Neg); Ketones, Urine 2+ (Neg); Leukocyte Esterase, Urine 1+ (Neg); Nitrite, Urine Neg (Neg); Protein, Urine 1+ (Neg); Specific Gravity, Urine 1.015 (1.003-1.022); Urobilinogen, Urine NORM (Normal); pH, Urine 6.5 (5.0-8.0)
[2025-02-11 05:08] LABS: Bacteria Few /hpf; Red Blood Cells, Urine TNTC /hpf (0-2); Squamous Epithelial Cells Few /hpf (Few); White Blood Cells, Urine 0-2 /hpf (0-5)
[2025-02-11] MEDS ORDERED: FentaNYL Citrate 50 MCG/ML 2 ML Injection IV PRN (05:40)
[2025-02-11] MEDS ORDERED: HYDR1TAB94 PO (07:20)
[2025-02-11 07:34] VITALS: BP 138/82
== END 2025-02-11 07:40 | disposition home or self-care (01) ==
LOC: ER 03:19
PROVIDERS: Emergency Medicine
DX: G43.909 Migraine, unspecified, not intractable, without status migrainosus (principal); R10.9 Unspecified abdominal pain; E86.0 Dehydration; R31.9 Hematuria, unspecified; Z59.89 Other problems related to housing and economic circumstances; Z88.0 Allergy status to penicillin; Z88.1 Allergy status to other antibiotic agents; Z79.899 Other long term (current) drug therapy; I10 Essential (primary) hypertension; Z90.49 Acquired absence of other specified parts of digestive tract
CPT/HCPCS: 74177; 80053; 81001; 83690; 85025; 87086; 93005; 93010; 96361; 96374-59; 96375; 99285-25; J0780; J1200; J3010; J7030; Q9967

== ENCOUNTER → 2025-04-06 | Outpatient (CLI) | payer MEDICARE, BC, OTHER ==
[~2025-04-06] MED LIST changes: +HYDR1TAB94 PO
== END ==
LOC: LAB 12:00 → LAB SHORT 12:00
DX: N39.0 Urinary tract infection, site not specified (principal)
CPT/HCPCS: 87086

== ENCOUNTER → 2025-04-13 | Outpatient (CLI) | payer MEDICARE, BC, OTHER | END | disposition home or self-care (01) | LOC: LAB SHORT 17:00 → LAB 17:00 | DX: N18.30 Chronic kidney disease, stage 3 unspecified (principal); D63.1 Anemia in chronic kidney disease; N25.81 Secondary hyperparathyroidism of renal origin; E55.9 Vitamin D deficiency, unspecified; E78.00 Pure hypercholesterolemia, unspecified; R76.9 Abnormal immunological finding in serum, unspecified; R94.5 Abnormal results of liver function studies; R94.6 Abnormal results of thyroid function studies | CPT/HCPCS: 82043; 82570; 84156 ==

== ENCOUNTER → 2025-04-26 | Outpatient (CLI) | payer MEDICARE, BC, OTHER ==
[2025-04-26 20:01] LABS: Thyroid Stimulating Hormone 0.049 uIU/mL (0.360-4.800)
[2025-04-27 21:01] LABS: THYROGLOBULIN ANTIBODY <1.5 IU/mL (0.0-4.0); THYROID PEROXIDASE (TPO) AB 39.7 IU/mL (0.0-9.0)
== END ==
LOC: LAB 16:13 → LAB SHORT 16:13
PROVIDERS: Family Medicine
DX: E04.1 Nontoxic single thyroid nodule (principal)
CPT/HCPCS: 84439; 84443; 84481; 86376; 86800

== ENCOUNTER → 2025-05-18 | Outpatient (CLI) | payer MEDICARE, BC, OTHER | END | disposition home or self-care (01) | LOC: LAB 11:00 → LAB SHORT 11:00 | DX: N39.0 Urinary tract infection, site not specified (principal) | CPT/HCPCS: 87086 ==